=== PATIENT | male | born 2000 | race Caucasian/White ===

== ENCOUNTER 2023-05-10 16:59 | Emergency (ER) | payer OTHER ==
[2023-05-10 17:08] VITALS: BP 115/72; PULSE 91; RESP 20; TEMP 98.2; BMI 17.7
[2023-05-10] MEDS ORDERED: IBUPROFEN 600 MG TABLET (FP) PO ONE ×2 (18:14→18:25)
== END 2023-05-10 19:56 | disposition home or self-care (01) ==
LOC: JER 16:59
DX: S00.83XA Contusion of other part of head, initial encounter (principal); R68.84 Jaw pain; Y04.2XXA Assault by strike against or bumped into by another person, initial encounter
CPT/HCPCS: 70486-TC; 99284-25